=== PATIENT | male | born 1945 | race Caucasian/White ===

== ENCOUNTER 2017-11-03 14:58 | Observation (INO) | payer MEDICARE ==
[2017-11-03 17:57] LABS: Glucose,Whole Blood 144 mg/dL (75-99)
[2017-11-03] MEDS ORDERED: NALOXONE 0.4 MG/ML 1 ML VIAL IV PRN (18:19)
[2017-11-03] MEDS ORDERED: ACETAMINOPHEN TAB 325 MG TAB PO PRN (18:19)
[2017-11-03] MEDS ORDERED: HEPARIN SODIUM,PORCINE 5,000 UNIT/ML 1 ML VIAL IV ONE (18:21)
[2017-11-03] MEDS ORDERED: HYDROcodone/APAP 5-325MG 1 EACH TAB PO PRN (18:22)
[2017-11-03] MEDS ORDERED: ALPRAZolam 0.25 MG TAB PO PRN (18:22)
[2017-11-03] MEDS ORDERED: TEMAZEPAM 15 MG CAP PO PRN (18:22)
[2017-11-03] MEDS ORDERED: SODIUM CHLORIDE 0.9% 1,000 ML IV SCH (18:30)
[2017-11-03 18:41] VITALS: BMI 32.8
[2017-11-03] MEDS ORDERED: HEPARIN SOD,PORK IN 0.45% NACL 25,000 UNIT in 0.45% NACL 1 500ML.BAG IV SCH (19:00)
[2017-11-03 19:07] LABS: Basophils % (A) 0 %; Eosinophils # (A) 0.1 k/uL (0-0.7); Eosinophils % (A) 1 %; HCT 40.2 % (39.0-53.0); HGB 12.6 gm/dL (13.0-17.5); Lymphocytes # (A) 0.8 k/uL (1.0-4.8); Lymphocytes % (A) 10 %; MCHC 31.4 g/dL (31.0-37.0); MCV 92.5 fL (80.0-100.0); Mean Platelet Volume 6.9; Monocytes # (A) 0.3 k/uL (0-1.0); Monocytes % (A) 4 %; Neutrophils # (A) 6.2 k/uL (1.3-7.7); Neutrophils % (A) 84 %; Platelet Count 252 k/uL (150-450); RBC 4.35 m/uL (4.30-5.90); RDW 12.7 % (11.5-15.5); WBC 7.4 k/uL (3.8-10.6)
[2017-11-03 19:21] LABS: ALT 25 U/L (21-72); AST 22 U/L (17-59); Albumin 3.7 g/dL (3.5-5.0); Alkaline Phosphatase 106 U/L (38-126); Anion Gap 11 mmol/L; Blood Urea Nitrogen 17 mg/dL (9-20); Calcium 9.3 mg/dL (8.4-10.2); Carbon Dioxide 26 mmol/L (22-30); Chloride 97 mmol/L (98-107); Glucose 197 mg/dL (74-99); Magnesium 1.6 mg/dL (1.6-2.3); Phosphorus 3.6 mg/dL (2.5-4.5); Potassium 4.7 mmol/L (3.5-5.1); Sodium 134 mmol/L (137-145); Total Bilirubin 0.6 mg/dL (0.2-1.3); Total Protein 6.1 g/dL (6.3-8.2)
[2017-11-03 19:22] LABS: Prothrombin Time 10.1 sec (9.0-12.0)
[2017-11-03 19:29] LABS: Partial Thromboplastin Time 21.7 sec (22.0-30.0)
[2017-11-03] MEDS: HEPARIN SODIUM,PORCINE 5,000 UNIT/ML 1 ML VIAL IV PRN (20:28)
[2017-11-03] MEDS: PANTOPRAZOLE 40 MG/10 ML VIAL IV SCH (20:28)
[2017-11-03 20:37] LABS: Glucose,Whole Blood 150 mg/dL (75-99)
--- NOTE | 2017-11-03 23:56 | HP ---
HISTORY AND PHYSICAL CHIEF COMPLAINT: Chest pain. HISTORY OF PRESENT ILLNESS: This 72-year-old gentleman with a past medical history of diabetes, hypertension , history of DJD being followed by primary physician in [facility], presented to [facility] with complaints of chest pain as well as generalized tiredness and weakness. The patient was evaluated. EKG showed right bundle with a left axis deviation and the patient was subsequently transferred to [facility] for further evaluation and treatment. There is no history of any fever, rigors. No history of headache, loss of consciousness, seizures. The patient also had right knee infection history. PAST MEDICAL HISTORY: Diabetes, hypertension, history of DJD. MEDICATIONS PRIOR TO ADMISSION: Include home medications are: 1. Metformin 500 mg p.o. b.i.d. 2. Glipizide 10 mg a.c. breakfast. 3. Amlodipine 1 tablet p.o. daily. ALLERGIES: None. FAMILY HISTORY: History of myocardial infarction in the family. SOCIAL HISTORY: Previous history of smoking. No current history of smoking or alcohol intake. REVIEW OF SYSTEMS: ENT: No diminished hearing, diminished vision. CARDIOVASCULAR: As mentioned earlier. RESPIRATORY: As mentioned earlier. GI: No nausea or vomiting. : No dysuria. NERVOUS: No numbness or weakness. ALLERGY/IMMUNOLOGY: No asthma or hay fever. MUSCULOSKELETAL: As mentioned earlier. HEMATOLOGY/ONCOLOGY: No history of anemia. ENDOCRINE: No diabetes mellitus. CONSTITUTIONAL: As mentioned earlier. DERMATOLOGY: Negative. RHEUMATOLOGY: Negative. PSYCHIATRY: As mentioned earlier. PHYSICAL EXAMINATION: Alert and oriented x3. Pulse 59, blood pressure 104/58, respirations 19, temperature is 97.8, pulse ox 94% on room air. HEENT: Conjunctivae normal. Oral mucosa moist. NECK: No jugular venous distention. No carotid bruits. No lymph node enlargement. CARDIOVASCULAR: S1, S2 muffled. RESPIRATORY: Breath sounds diminished in the bases. No rhonchi. No crackles. ABDOMEN: Soft, nontender. No mass palpable. LEGS: No edema. No swelling. NERVOUS SYSTEM: Higher functions as mentioned earlier. Moves all 4 limbs. No focal motor or sensory deficits. LYMPHATIC: No lymphadenopathy in neck or axillae. SKIN: No ulcer, rash or bleeding. LABS: At this time show WBC 11, hemoglobin is 12.6. PTT is 10.1. INR is 1. Sodium 134, glucose 197. Total protein 6.1. Troponins are less than 0.012. ASSESSMENT: 1. Chest pain, possible unstable angina. 2. Generalized weakness. 3. Right bundle branch block with left axis deviation on EKG. 4. Mild anemia, normocytic anemia. 5. Hyponatremia. 6. Diabetes mellitus type 2. 7. Hypertension. 8. History of degenerative joint disease. 9. Remote history of nicotine dependence. 10.FULL CODE. RECOMMENDATIONS AND DISCUSSION: In this 72-year-old gentleman who presented with multiple complex medical issues , will monitor the patient closely, continue the current medical management and symptomatic angina protocol. Otherwise, I recommend resume the home medications and continue to monitor. Otherwise, Cardiology consultation, rule out myocardial infarction. Repeat labs are ordered. Prognosis guarded because of multiple complex medical issues. Discussed with the patient, who understands. Further recommendations to follow. JAY / LEANN: [id number] / MTDD
[2017-11-04 03:19] LABS: Basophils % (A) 0 %; Eosinophils # (A) 0.2 k/uL (0-0.7); Eosinophils % (A) 3 %; HCT 37.5 % (39.0-53.0); HGB 12.4 gm/dL (13.0-17.5); Lymphocytes # (A) 1.6 k/uL (1.0-4.8); Lymphocytes % (A) 27 %; MCH 29.5 pg (25.0-35.0); MCHC 33.1 g/dL (31.0-37.0); MCV 89.3 fL (80.0-100.0); Mean Platelet Volume 6.8; Monocytes # (A) 0.3 k/uL (0-1.0); Monocytes % (A) 5 %; Neutrophils # (A) 3.8 k/uL (1.3-7.7); Neutrophils % (A) 63 %; Platelet Count 237 k/uL (150-450); RDW 12.7 % (11.5-15.5); WBC 6.1 k/uL (3.8-10.6)
[2017-11-04 03:46] VITALS: RESP 16
[2017-11-04 03:46] LABS: Anion Gap 7 mmol/L; Blood Urea Nitrogen 18 mg/dL (9-20); Calcium 9.2 mg/dL (8.4-10.2); Carbon Dioxide 28 mmol/L (22-30); Chloride 101 mmol/L (98-107); Glucose 117 mg/dL (74-99); Potassium 3.7 mmol/L (3.5-5.1); Sodium 136 mmol/L (137-145)
[2017-11-04] MEDS: HEPARIN SODIUM,PORCINE 5,000 UNIT/ML 1 ML VIAL IV PRN (04:37)
[2017-11-04 06:55] LABS: Glucose,Whole Blood 130 mg/dL (75-99)
[2017-11-04] MEDS ORDERED: glipiZIDE 10 MG TAB PO SCH (07:30)
[2017-11-04] MEDS ORDERED: ATORVASTATIN 80 MG TAB PO STA (08:44)
[2017-11-04] MEDS ORDERED: ASPIRIN 325 MG TAB PO STA (08:44)
[2017-11-04] MEDS ORDERED: NITROGLYCERIN SL TABS 0.4 MG TAB SUBLINGUAL PRN (08:44)
[2017-11-04] MEDS ORDERED: ALPRAZolam 0.5 MG TAB PO PRN (08:44)
[2017-11-04] MEDS ORDERED: ALPRAZolam 0.25 MG TAB PO PRN (08:44)
[2017-11-04] MEDS ORDERED: SODIUM CHLORIDE 0.9% 1,000 ML in EMPTY BAG 1 BAG IV ONE (08:44)
[2017-11-04] MEDS ORDERED: ATORVASTATIN 40 MG TAB PO SCH (09:00)
[2017-11-04] MEDS ORDERED: amLODIPine 10 MG TAB PO SCH (09:00)
[2017-11-04] MEDS ORDERED: LISINOPRIL-HCTZ 20-25 MG 1 EACH TAB PO SCH (09:00)
[2017-11-04] MEDS: INSULIN ASPART 100 UNIT/ML 1 ML 10 ML VIAL SQ SCH ×2 (09:25→13:53)
[2017-11-04] MEDS: PANTOPRAZOLE 40 MG/10 ML VIAL IV SCH (09:33)
--- NOTE | 2017-11-04 10:18 | CONS ---
TYRA Hoffmann is a 72-year-old gentleman with multiple coronary risk factors including hypertension, diabetes, dyslipidemia, who presents to hospital complaining of precordial chest pressure and left arm discomfort when he came out of his home and walked outside yesterday. It was associated with some diaphoresis. The patient initially presented to [facility] and from there was transferred to [facility]. Here, the EKG shows sinus rhythm, right bundle branch block, intraventricular conduction delay and nonspecific ST-T wave changes. Cardiac enzymes have been negative. His hemoglobin is normal at 12.4. Creatinine is 0.8. Potassium is 3.7. Three sets of troponins are negative. His symptoms are consistent with unstable angina and I advised him to undergo cardiac catheterization. The patient was recently evaluated by my associate, Dr. Hernandez, and apparently had a negative stress test. PAST MEDICAL HISTORY: Significant for hypertension, diabetes, dyslipidemia. MEDICATIONS: Medications include Glucophage 500 b.i.d., Glucotrol 10 q. daily, amlodipine, atorvastatin, lisinopril, hydrochlorothiazide. ALLERGIES: No known drug allergies. FAMILY HISTORY: Negative for premature coronary artery disease. SOCIAL HISTORY: Negative for smoking, EtOH abuse or drug abuse. REVIEW OF SYSTEMS: HEENT is unremarkable. CARDIAC: As described above. RESPIRATORY: Negative. GI: Negative, GENITOURINARY: Negative. ALLERGY/IMMUNOLOGY: Negative. MUSCULOSKELETAL: Significant for arthritis. SKIN: Negative. PSYCHOSOCIAL: Negative. ENDOCRINE: Negative. HEMATOLOGICAL: Negative. DERM: Negative. CONSTITUTIONAL: Negative. ONCOLOGICAL: Negative. Rest of the system review is not relevant. PHYSICAL EXAMINATION: On exam, comfortable at rest. Vital signs are stable. There is no jugular venous distention. Carotid upstroke is normal. There is no bruit. Chest exam reveals good air entry bilaterally. Heart exam reveals first and second heart sounds and a systolic murmur at the apex. Abdomen is soft, nontender. Examination of extremities did not reveal any edema. Peripheral pulses are felt. CLINICAL RESOURCE MANAGER exam did not reveal focal neurological deficits. EKG is as described above. Cardiac enzymes are as described above. ASSESSMENT: Unstable angina. PLAN: Patient will undergo cardiac catheterization. He has been explained of risks, benefits and alternatives. MMODL / IJN: [id number] /
[2017-11-04 11:54] LABS: Hemoglobin A1C 6.8 % (4.0-6.0)
[2017-11-04] MEDS ORDERED: IV FLUID CONTINUATION 800 ML IV ONE (12:00)
[2017-11-04 12:03] VITALS: TEMP 97.4
[2017-11-04] MEDS ORDERED: MIDAZOLAM 2 MG/2 ML VIAL IV ONE (12:25)
[2017-11-04] MEDS ORDERED: LIDOCAINE 2% INJ 20 MG/ML SQ ONE (12:28)
[2017-11-04] MEDS ORDERED: VERAPAMIL SYRINGE (5 MG/10 ML) INTRAARTER ONE (12:30)
[2017-11-04] MEDS ORDERED: HEPARIN SODIUM 1,000 UN/ML (10ML VL) IV ONE (12:33)
[2017-11-04] MEDS ORDERED: IOHEXOL 350 MG/ML 125ML BOTTLE INJ ONE (12:43)
[2017-11-04] MEDS ORDERED: RX INFO: IV CONTRAST WAS GIVEN 1 EACH MISC MISCELLANE PRN (12:48)
[2017-11-04] MEDS ORDERED: SODIUM CHLORIDE 0.9% 1,000 ML IV SCH (13:00)
--- NOTE | 2017-11-04 13:30 | CC ---
CARDIAC CATHETERIZATION REPORT DATE OF SERVICE: 11/04/2017 PERFORMING PHYSICIAN: Flakito Hernandez MD, baggage security checker. PROCEDURE PERFORMED: 1. Selective right and left coronary angiogram. 2. Left heart catheterization. INDICATION: This is a pleasant 72-year-old female patient who presented to the hospital with chest discomfort and continues to have ongoing chest discomfort. In view of that, a heart catheterization was recommended. APPROACH: Right radial artery. COMPLICATION: None. LEVEL OF SEDATION: Moderate with sedation length of 20 minutes. PROCEDURE DESCRIPTION: After obtaining an informed consent, the patient was brought to cardiac dental lab technician. The right radial artery was cannulated using micropuncture technique and the micropuncture wire passed easily. Then I placed a 6-Japanese sheath in the right radial artery. After that, I gave the patient 2 mg of verapamil IA and 10,000 units of heparin IV. After that, I did selective right and left coronary angiogram using JR4 and JL3.5 catheters. After that I did left heart catheterization using 6-Japanese pigtail catheter. The procedure was completed without any complication. SELECTIVE CORONARY ANGIOGRAM: 1. The RCA is a moderate caliber vessel. It is a nondominant vessel. It is angiographically normal. 2. The left main is a large left main with mild disease only. 3. The left circumflex is a large caliber vessel. It is a dominant vessel. The proximal circ has mild disease only and gives rise into a large OM branch, which seems to be angiographically normal. The mid left circumflex is normal. The left circumflex distally has mild disease only and bifurcates into PDA and PLV branches, both are angiographically normal. 4. The left anterior descending artery; the proximal LAD appeared to have mild disease only. The mid LAD and distal LAD are angiographically normal. The LAD gives rise into 3 diagonal branches, seems to be angiographically normal. HEMODYNAMICS: The left ventricular end-diastolic pressure was 12 mmHg and no gradient was identified across the aortic valve. CONCLUSION: 1. Mild to moderate nonobstructive coronary artery disease. 2. Normal left ventricular end-diastolic pressure. Postprocedure management is medical treatment. MMODL / IJN: [id number] /
[2017-11-04 16:13] VITALS: BP 129/61; PULSE 57
--- NOTE | 2017-11-04 21:32 | DS ---
DISCHARGE SUMMARY DATE OF SERVICE: 11/04/2017 FINAL DIAGNOSES: 1. Chest pain, possible unstable angina, status post cardiac catheterization with mild to moderate coronary artery disease. 2. Generalized weakness. 3. Right bundle branch block on EKG with left axis deviation. 4. Mild anemia; normocytic anemia of chronic disease. 5. Hyponatremia. 6. Diabetes mellitus, type 2. 7. Hypertension. 8. History of degenerative joint disease. 9. Remote history of nicotine dependence. 10.FULL CODE. DISCHARGE DISPOSITION: The patient will be discharged in stable condition with guarded prognosis after clearance by Cardiology. HISTORY OF PRESENT ILLNESS: This 72-year-old gentleman with a past medical history of multiple medical problems was admitted with generalized weakness and chest discomfort. Myocardial infarction was ruled out. Cardiac catheterization showed mild to moderate coronary artery disease. Medical treatment was recommended. On exam, vitals are stable. CARDIOVASCULAR SYSTEM: S1, S2 normal. ABDOMEN: Soft. NERVOUS SYSTEM: No focal deficit. Patient will be discharged in stable condition with guarded prognosis with following advice and medications. 1. Diet is cardiac. 2. Activity limited until followup. 3. Follow up with Dr. Hernandez as advised. 4. Follow up with the primary physician as advised. 5. Amlodipine/atorvastatin 10/40 p.o. daily. 6. Ecotrin 81 mg daily. 7. Glucotrol 10 mg daily. 8. Lisinopril/hydrochlorothiazide 20 mg p.o. daily. 9. Hold metformin for 48 hours and then restart. MMODL / BERNICEN: [id number] /
== END 2017-11-04 17:58 | disposition home or self-care (01) ==
LOC: 3OBS 17:40
PROVIDERS: ADMIT Internal Medicine; ATTEND Internal Medicine
DX: R07.89 Other chest pain (principal); I25.110 Atherosclerotic heart disease of native coronary artery with unstable angina pectoris; E87.1 Hypo-osmolality and hyponatremia; I45.10 Unspecified right bundle-branch block; D63.8 Anemia in other chronic diseases classified elsewhere; E11.9 Type 2 diabetes mellitus without complications; I10 Essential (primary) hypertension; M19.90 Unspecified osteoarthritis, unspecified site; Z79.84 Long term (current) use of oral hypoglycemic drugs; Z79.899 Other long term (current) drug therapy; Z87.891 Personal history of nicotine dependence; Z82.49 Family history of ischemic heart disease and other diseases of the circulatory system
CPT/HCPCS: 96361; 96365; 96366 ×2; 96375; 96376 ×2; 93458; 80053; 80048; 83735; 84100; 84484 ×2; 85025 ×2; 85610; 85730 ×2; 83036; G0378 ×2; G0379; C1769 ×2; C1894; J2001; J2250; J1644 ×4; C9113 ×2; Q9967; 93005